=== PATIENT | male | born 1960 | race Caucasian/White ===

== ENCOUNTER 2016-09-18 12:51 | Outpatient (CLI) | payer OTHER ==
[2016-09-18 13:12] LABS: BASOPHILS % 0.4 (0.0-1.5); EOSINOPHILS % 2.1 % (0.0-6.8); LYMPHOCYTES # 2.2 # k/uL (0.6-4.0); MEAN CORPUSCULAR HEMOGLOBIN 31.2 pg (28.0-34.0); MONOCYTES # 0.4 # k/uL (0.0-0.9); MONOCYTES % 5.7 % (0.0-11.0); NEUTROPHILS # 4.7 # k/uL (1.4-7.7)
[2016-09-18 13:29] LABS: eGFR (African) > 60; eGFR (Non-African) > 60
[2016-09-18 13:32] LABS: CREATINE KINASE MB 1.1 ng/mL (0.3-5.0)
--- NOTE | 2016-09-18 17:18 | Diagnostic Imaging Report ---
[facility] [address] [facility] [address] Report Submission Date: Sep 18, 2016 3:07:35 PM [employer] Patient Study Name: BARBARA WYATT Date: Sep 18, 2016 1:20:36 PM [employer] Modality Type: CR Gender: M Description: CHEST : 60 Institution: [facility] Physician: CORNELIO HYATT Chest - two views Clinical history: Chest pain for 2 days. Smoking history. Findings: Examination of the chest in PA and lateral views with no prior film for comparison demonstrates the lungs to be hyperinflated with flattening of the hemidiaphragms consistent with emphysema. Cardiac silhouette is prominent. A retrocardiac hiatal hernia is demonstrated. Bony thorax is intact. Impression: 1. Emphysema. 2. Left ventricular prominence. 3. Hiatal hernia. Electronically signed on Sep 18, 2016 3:07:35 PM [employer] DISPATCHER by: Enoch WOOD
== END 2016-09-18 12:52 ==
LOC: LAB 12:51
PROVIDERS: ATTEND Family Medicine
DX: R07.9 Chest pain, unspecified (principal)
CPT/HCPCS: 36415; 71020; 80053; 80061; 82553; 84484; 85025

== ENCOUNTER 2018-03-14 09:19 | Outpatient (CLI) | payer OTHER ==
[2018-03-14 10:16] LABS: eGFR (African) > 60; eGFR (Non-African) > 60
== END 2018-03-14 09:20 ==
LOC: LAB 09:19
PROVIDERS: ATTEND Family Medicine
DX: Z00.00 Encounter for general adult medical examination without abnormal findings (principal); Z12.5 Encounter for screening for malignant neoplasm of prostate
CPT/HCPCS: 36415; 80053; 80061; G0103

== ENCOUNTER 2018-04-01 02:35 | Emergency (ER) | payer OTHER ==
[2018-04-01] MEDS ORDERED: ASPIRIN 81 MG CHEW TAB PO ONE (02:50)
[2018-04-01] MEDS ORDERED: ASPIRIN 81 MG CHEW TAB ONE (02:51)
[2018-04-01 03:27] LABS: eGFR (African) > 60; eGFR (Non-African) > 60
[2018-04-01 03:30] LABS: BASOPHILS % 0.2 (0.0-1.5); EOSINOPHILS % 1.1 % (0.0-6.8); MONOCYTES % 4.8 % (0.0-11.0); NEUTROPHILS # 5.1 # k/uL (1.4-7.7)
--- NOTE | 2018-04-01 03:51 | ED Physician Documentation ---
Chest Pain - HISTORIAN Historian: patient - HPI Stated Complaint: CHEST PAIN Chief Complaint: Chest Pain Onset: hours (1) Timing: sudden onset Duration: other (he had a similar episode a few days ago ) Last known Well Date: 04/02/18 Last Known Well Time: 08:00 Last known Well Code/Unknown Code: Unknown Context: sleep Severity: mild Quality: pressure, tightness, sharp Chest Pain Radiation: no radiation Chest Pain Signs/Symptoms: other (feeling like his arms were heavy and chest pain ). denies: nausea, vomiting, diaphoresis, cool extremities, dizziness Worsened By: nothing Relieved By: nothing Further Comments: yes (He states he started to have chest pain and tightness although pain is resloved at this time. Denies any Shortness of air. No nausea or other complaints) - ROS CONST: none MS/LYMPH: none - PAST HX GA risk factors: hypertension DVT/PE Risk Factors: none TAD/AAA risk factors: none Neuro deficit: none GI disease: none Lung disease: none Immunizations: UTD Allergies/Adverse Reactions: Allergies Allergy/AdvReac Type Severity Reaction Status Date / Time No Known Drug Allergies Allergy Verified 04/01/18 02:51 - SOCIAL HX Smoking History: cigarettes Alcohol Use: none Drug Use: none - FAMILY HX Family HX: none - VITAL SIGNS Vital Signs: Vital Signs Temp Pulse Resp BP Pulse Ox 97.8 F 63 18 142/85 98 04/01/18 02:36 04/01/18 03:40 04/01/18 02:36 04/01/18 02:36 04/01/18 03:40 - REVIEWED ASSESSMENTS Nursing Assessment Reviewed: Yes Vitals Reviewed: Yes ED Results Lab/Radiology - Lab Results Lab Results: Lab Results 04/01/18 04/01/18 04/01/18 02:55 02:54 02:54 WBC 8.20 K/ul K/ul (4.00-12.00) RBC 4.92 M/ul M/ul (3.90-5.20) Hgb 15.3 g/dL g/dL (12.0-18.0) Hct 43.8 % % (37.0-53.0) MCV 89.0 fl fl (80.0-100.0) MCH 31.0 pg pg (28.0-34.0) MCHC 34.8 g/dL g/dL (30.0-36.0) RDW 13.1 % % (11.3-14.3) Plt Count 192 K/mm3 K/mm3 (130-400) Neut % (Auto) 62.2 % % (39.0-79.0) Lymph % (Auto) 30.2 % % (16.0-50.0) [place] % (Auto) 4.8 % % (0.0-11.0) Eos % (Auto) 1.1 % % (0.0-6.8) Baso % (Auto) 0.2 (0.0-1.5) Neut # (Auto) 5.1 # k/uL # k/uL (1.4-7.7) Lymph # (Auto) 2.5 # k/uL # k/uL (0.6-4.0) [place] # (Auto) 0.4 # k/uL # k/uL (0.0-0.9) Eos # (Auto) 0.1 # k/uL # k/uL (0.0-0.6) Baso # (Auto) 0.0 # k/uL # k/uL (0.0-0.5) Reactive Lymphs % 1.5 % % (0.0-5.0) Reactive Lymphs # 0.1 # k/uL # k/uL (0.0-0.8) Sodium 137 mmol/L mmol/L (136-145) Potassium 3.1 mmol/L L mmol/L (3.5-5.1) Chloride 102 mmol/L mmol/L (98-107) Carbon Dioxide 27 mmol/L mmol/L (22-30) BUN 13 mg/dL mg/dL (9-20) Creatinine 0.90 mg/dL mg/dL (0.66-1.25) Estimated Creat Clear 95 Est GFR ( Amer) > 60 (60 - ) Est GFR (Non-Af Amer) > 60 (60 - ) Glucose 80 mg/dL mg/dL (74-106) Calcium 8.8 mg/dL mg/dL (8.4-10.2) Total Bilirubin 0.1 mg/dL L mg/dL (0.2-1.3) AST 25 U/L U/L (15-46) ALT 29 U/L U/L (13-69) Alkaline Phosphatase 96 U/L U/L (38-126) Troponin I < 0.03 ng/mL L ng/mL (0.03-0.06) Total Protein 7.0 g/dL g/dL (6.3-8.2) Albumin 4.2 g/dL g/dL (3.5-5.0) - Orders Orders: ED Orders Category Date Time Status Continuous EKG monitoring Q30M Care 04/01/18 02:40 Active Continuous Pulse Oximetry Q30M Care 04/01/18 02:[address] IV Lock 1T Care 04/01/18 02:49 Active CHEST 2VIEW [RAD] Stat Exams 04/01/18 Taken CBC/PLATELET/DIFF Stat Lab 04/01/18 02:55 Completed CMP Stat Lab 04/01/18 02:54 Completed TROPONIN I (cTnI) Stat Lab 04/01/18 02:54 Completed URINALYSIS Stat Lab 04/01/18 02:47 Ordered Aspirin Med 04/01/18 02:51 Discontinued 324 mg .ROUTE .STK-MED ONE Oxygen Daily Oxygen 04/01/18 03:00 Ordered EKG WITH COMPARISON Stat Ther 04/01/18 Ordered Chest Pain Physical Exam - EXAM General Appearance: no acute distress, alert EENT: eye inspection normal, ENT inspection normal Neck: nml inspection Respiratory: no resp. distress, chest non-tender, nml breath sounds, resp.distress CVS: reg. rate & rhythm, no murmur Abdomen: soft, normal bowel sounds Skin: warm/dry, normal color Extremities: non-tender, normal range of motion, no edema Neuro: oriented X3, CN's nml as tested, motor nml, sensation nml, mood/affect nml Discharge Clincal Impression: Hypokalemia Chest pain Qualifiers: Chest pain type: other chest pain Qualified Code(s): R07.89 - Other chest pain Referrals: Marielle El MD [Primary Care Provider] - 2 Days Comments: 1. Potassium 10 mEq daily x 5 2. Follow up with Dr El for re check of potassium level 3. Increase fluids 4. Stop smoking 5. Return to ER for any concerns Condition: Stable Disposition: 01 HOME, SELF-CARE Decision to Admit: NO Date of Decison to Admit: 04/01/18 Decision Time: 04:05
[2018-04-01] MEDS ORDERED: POTASSIUM CHLORIDE 20 MEQ TABLET.ER PO ONE (03:59)
[2018-04-01 04:48] VITALS: BP 138/81
--- NOTE | 2018-04-01 06:38 | Diagnostic Imaging Report ---
ISABEL ANAND [facility] [address] [facility] [address] [place], [place]. [address] Report Submission Date: Apr 01, 2018 3:29:31 AM CDT Patient Study Name: BARBARA WYATT Date: Apr 01, 2018 3:08:38 AM CDT Modality Type: DX Gender: M Description: CHEST : 60 Institution: [facility] Physician: ISABEL ANAND Chest two views History: Chest pain and cough Findings: The lungs are hyperinflated without infiltrate, pleural effusion, or pneumothorax. A small hiatal hernia is probably present. Heart size and pulmonary vascularity are normal. Osseous structures are intact. Impression: Hyperinflation and probably small hiatal hernia. Electronically signed on Apr 01, 2018 3:29:31 AM CDT by: Gibran WOOD
== END 2018-04-01 04:30 | disposition home or self-care (01) ==
LOC: ED 02:35
DX: E87.6 Hypokalemia (principal); R07.89 Other chest pain
CPT/HCPCS: 71046; 80053; 84484; 85025; 93005; A9270; S1016

== ENCOUNTER 2018-04-04 09:27 | Outpatient (CLI) | payer OTHER ==
[2018-04-04 10:50] LABS: eGFR (African) > 60; eGFR (Non-African) > 60
== END 2018-04-04 11:24 ==
LOC: LAB 09:27
PROVIDERS: ATTEND Family Medicine
DX: E87.6 Hypokalemia (principal)
CPT/HCPCS: 36415; 80048

== ENCOUNTER 2018-10-23 14:47 | Outpatient (CLI) | payer OTHER | END 2018-10-23 14:50 | LOC: RT 14:47 | PROVIDERS: ATTEND Family Medicine | DX: R07.9 Chest pain, unspecified (principal) | CPT/HCPCS: 36415; 82550; 82553; 84484 ==

== ENCOUNTER 2018-11-06 11:50 | Outpatient (CLI) | payer OTHER ==
[2018-11-06 12:22] LABS: EOSINOPHILS % 2.2 % (0.0-6.8); MEAN CORPUSCULAR HEMOGLOBIN 30.4 pg (28.0-34.0); MONOCYTES % 6.2 % (0.0-11.0)
[2018-11-06 12:23] LABS: BASOPHILS % 1.7 (0.0-1.5); NEUTROPHILS # 5.1 # k/uL (1.4-7.7)
[2018-11-06 12:29] LABS: eGFR (Non-African) > 60
== END 2018-11-06 11:52 ==
LOC: LAB 11:50
PROVIDERS: ATTEND Internal Medicine Cardiovascular Disease
DX: I20.0 Unstable angina (principal)
CPT/HCPCS: 36415; 80053; 80061; 85025

== ENCOUNTER 2018-11-14 15:49 | Outpatient (CLI) | payer OTHER ==
[2018-11-14 16:33] LABS: MEAN CORPUSCULAR HEMOGLOBIN 31.1 pg (28.0-34.0)
== END 2018-11-14 15:50 ==
LOC: LAB 15:49
PROVIDERS: ATTEND Family Medicine
DX: R19.5 Other fecal abnormalities (principal)
CPT/HCPCS: 36415; 85027

== ENCOUNTER 2018-11-15 07:49 | Outpatient (CLI) | payer OTHER ==
[2018-11-15 08:46] LABS: MEAN CORPUSCULAR HEMOGLOBIN 30.7 pg (28.0-34.0)
== END 2018-11-15 08:00 ==
LOC: LAB 07:49
PROVIDERS: ATTEND Family Medicine
DX: R19.5 Other fecal abnormalities (principal)
CPT/HCPCS: 36415; 85014; 85018

== ENCOUNTER 2018-11-16 09:06 | Outpatient (CLI) | payer OTHER | END 2018-11-16 09:15 | LOC: LAB 09:06 | PROVIDERS: ATTEND Family Medicine | DX: K92.2 Gastrointestinal hemorrhage, unspecified (principal) | CPT/HCPCS: 36415; 85014; 85018 ==

== ENCOUNTER 2018-11-17 09:05 | Outpatient (CLI) | payer OTHER ==
[2018-11-17 09:34] LABS: MEAN CORPUSCULAR HEMOGLOBIN 30.7 pg (28.0-34.0); MONOCYTES % 6.9 % (0.0-11.0)
[2018-11-17 09:35] LABS: BASOPHILS % 0.8 % (0.0-1.5); EOSINOPHILS % 1.8 % (0.0-6.8); NEUTROPHILS # 5.8 # k/uL (1.4-7.7)
== END 2018-11-17 09:10 ==
LOC: LAB 09:05
PROVIDERS: ATTEND Nurse Practitioner Family
DX: K92.2 Gastrointestinal hemorrhage, unspecified (principal)
CPT/HCPCS: 36415; 85025

== ENCOUNTER 2018-11-18 08:13 | Outpatient (CLI) | payer OTHER ==
[2018-11-18 08:27] LABS: MEAN CORPUSCULAR HEMOGLOBIN 30.9 pg (28.0-34.0)
== END 2018-11-18 09:00 ==
LOC: LAB 08:13
PROVIDERS: ATTEND Family Medicine
DX: K92.2 Gastrointestinal hemorrhage, unspecified (principal)
CPT/HCPCS: 36415; 85014; 85018

== ENCOUNTER 2018-11-19 08:04 | Outpatient (CLI) | payer OTHER ==
[2018-11-19 08:24] LABS: MEAN CORPUSCULAR HEMOGLOBIN 30.2 pg (28.0-34.0)
== END 2018-11-19 08:09 | disposition home or self-care (01) ==
LOC: LAB 08:04
PROVIDERS: ATTEND Family Medicine
DX: K92.2 Gastrointestinal hemorrhage, unspecified (principal)
CPT/HCPCS: 36415; 85018

== ENCOUNTER 2018-11-21 08:05 | Outpatient (CLI) | payer OTHER ==
[2018-11-21 08:24] LABS: MEAN CORPUSCULAR HEMOGLOBIN 31.1 pg (28.0-34.0)
== END 2018-11-21 09:44 ==
LOC: LAB 08:05
PROVIDERS: ATTEND Family Medicine
DX: K92.2 Gastrointestinal hemorrhage, unspecified (principal)
CPT/HCPCS: 36415; 85018

== ENCOUNTER 2018-11-25 07:52 | Outpatient (CLI) | payer OTHER ==
[2018-11-25 08:43] LABS: MEAN CORPUSCULAR HEMOGLOBIN 30.1 pg (28.0-34.0)
== END 2018-11-25 07:53 ==
LOC: LAB 07:52
PROVIDERS: ATTEND Family Medicine
DX: K92.2 Gastrointestinal hemorrhage, unspecified (principal)
CPT/HCPCS: 36415; 85014; 85018

== ENCOUNTER 2019-05-07 14:00 | Outpatient (CLI) | payer OTHER | END 2019-05-07 14:03 | LOC: LAB 14:00 | PROVIDERS: ATTEND Family Medicine | DX: Z12.5 Encounter for screening for malignant neoplasm of prostate (principal) | CPT/HCPCS: 36415; 84153 ==